=== PATIENT | female | born 1980 | race Caucasian/White ===

== ENCOUNTER 2019-05-30 08:15 | Emergency (ER) | payer BC ==
[2019-05-30] MEDS ORDERED: Famotidine 20 MG Tab PO ONE (08:50)
[2019-05-30] MEDS ORDERED: predniSONE 10 MG Tab PO ONE (08:52)
[2019-05-30] MEDS ORDERED: diphenhydrAMINE 50 MG Cap PO ONE (08:55)
--- NOTE | 2019-05-30 08:55 | EDM.PDOC ---
ED HPI GENERAL MEDICAL PROBLEM - General Chief Complaint: Allergic Reaction Stated Complaint: BODY AND FACE SWELLING/ALLERGIC REACTION Time Seen by Provider: 05/30/19 08:35 Source of Information: Reports: Patient History Limitations: Reports: No Limitations - History of Present Illness INITIAL COMMENTS - FREE TEXT/NARRATIVE: Patient is a 39-year-old female who presents with complaints of generalized rash as well as swelling in her eyes that started yesterday. She states that she was seen at the [facility] yesterday and did receive a "steroid shot" and has been taking Zyrtec. She states initially yesterday morning she did take some Benadryl but has not taken any since that time. She denies a known allergen. She states she will intermittently get a rash on her fourth and fifth fingers, however it is never been widespread like this. She been told in the past that it was stress-induced eczema. She states that she woke this morning the rash was worse than it was yesterday. She denies any swelling to her tongue, difficulty swallowing, or shortness of breath. - Related Data Allergies Allergy/AdvReac Type Severity Reaction Status Date / Time No Known Allergies Allergy Verified 05/30/19 08:25 Home Meds: Home Meds Levothyroxine [Synthroid] 50 mcg PO DAILY 11/04/13 [History] Cholecalciferol (Vitamin D3) [Vitamin D3] 5,000 unit PO DAILY 05/29/17 [History] Escitalopram [Lexapro] 10 mg PO DAILY 05/29/17 [History] Vitamin E 400 mg PO DAILY 05/29/17 [History] Acetaminophen/oxyCODONE [Percocet 325-5 MG] 2 tab PO Q4H PRN #30 tablet [Rx] Docusate Sodium [Colace] 100 mg PO BID cap 05/30/17 [Rx] predniSONE 40 mg PO DAILY #4 tab 05/30/19 [Rx] Past Medical History HEENT History: Reports: Impaired Vision Cardiovascular History: Reports: None Respiratory History: Reports: None Gastrointestinal History: Reports: None [employer] History: Reports: None Musculoskeletal History: Reports: Fibromyalgia Neurological History: Reports: Other (See Below) Other Neuro History: syncopal episode Psychiatric History: Reports: None Endocrine/Metabolic History: Reports: None Hematologic History: Reports: None Immunologic History: Reports: None Oncologic (Cancer) History: Reports: None Dermatologic History: Reports: None - Past Surgical History Head Surgeries/Procedures: Reports: None HEENT Surgical History: Reports: Oral Surgery Cardiovascular Surgical History: Reports: None Respiratory Surgical History: Reports: None GI Surgical History: Reports: None Female Surgical History: Reports: Section, Endometrial Ablation Other Female Surgeries/Procedures: hysteroscopy Endocrine Surgical History: Reports: None Neurological Surgical History: Reports: None Musculoskeletal Surgical History: Reports: None Oncologic Surgical History: Reports: None Dermatological Surgical History: Reports: None Social & Family History - Tobacco Use Smoking Status *Q: Never Smoker - Caffeine Use Caffeine Use: Reports: Coffee ED ROS ALLERGIC REACTION - Review of Systems Review Of Systems: See Below Constitutional: Reports: No Symptoms. Denies: Fever, Chills HEENT: Reports: No Symptoms Respiratory: Reports: No Symptoms Cardiovascular: Reports: No Symptoms Endocrine: Reports: No Symptoms GI/Abdominal: Reports: No Symptoms : Reports: No Symptoms Musculoskeletal: Reports: No Symptoms Skin: Reports: Rash (to upper extremities, torso, and face) Neurological: Reports: No Symptoms Psychiatric: Reports: No Symptoms Hematologic/Lymphatic: Reports: No Symptoms Immunologic: Reports: No Symptoms ED EXAM GENERAL NO PERIP PULSE - Physical Exam Exam: See Below Exam Limited By: No Limitations General Appearance: Alert, WD/WN, No Apparent Distress Throat/Mouth: Normal Inspection, Normal Lips, Normal Gums, Normal Oropharynx, Normal Voice, No Airway Compromise Head: Atraumatic, Normocephalic Respiratory/Chest: No Respiratory Distress, Lungs Clear, Normal Breath Sounds, No Accessory Muscle Use, Chest Non-Tender Cardiovascular: Normal Peripheral Pulses, Regular Rate, Rhythm, No Edema, No Murmur Neurological: Alert, Oriented, Normal Cognition Psychiatric: Normal Affect, Normal Mood Skin Exam: Warm, Dry, Rash (generalized maculopapular rash to bilateral arms, chest, back, and face. Edema present to bilateral eyes.) Course - Vital Signs Last Recorded V/S: Last Vital Signs Temp 98.3 F 05/30/19 08:23 Pulse 79 05/30/19 08:23 Resp 16 05/30/19 08:23 BP 134/91 H 05/30/19 08:23 Pulse Ox 100 05/30/19 08:23 - Orders/Labs/Meds Meds: Medications Discontinued Medications Generic Name Dose Route Start Last Admin Trade Name Brigida PRN Reason Stop Dose Admin Diphenhydramine HCl 50 mg 05/30/19 08:55 05/30/19 09:00 Benadryl PO 05/30/19 08:56 50 mg ONETIME ONE Administration Famotidine 20 mg 05/30/19 08:50 05/30/19 09:00 Pepcid PO 05/30/19 08:51 20 mg ONETIME ONE Administration Prednisone 40 mg 05/30/19 08:52 05/30/19 09:00 Prednisone PO 05/30/19 08:53 40 mg ONETIME ONE Administration - Re-Assessments/Exams Free Text/Narrative Re-Assessment/Exam: patient is a 39-year-old female who presents with complaints of generalized maculopapular rash throughout her upper extremities, torso, and face. She states that she was seen at the [facility] yesterday and given a shot which I did call and find out was Depo-Medrol 80 mg IM. She says she is also been taking Zyrtec as needed. Upon waking this morning she states that her face was more swollen and that the rash seems worse than it was yesterday. She denies any known allergens or having any difficulty swallowing, feeling of swelling in her mouth, or shortness of breath at any point during this occurrence. On exam she does have a generalized maculopapular rash over the dorsal aspect of her hands, bilateral arms, sparsely on the back and abdomen, as well as on her neck and face. She does have edematous eyelids. There is no redness within her mouth or signs of swelling to her oropharynx or uvula. I will discharge the patient with a prescription for prednisone and orders to use OTC Pepcid, Zyrtec, and Benadryl. discharge instructions as noted. Departure - Departure Time of Disposition: 09:09 Disposition: Home, Self-Care 01 Condition: Fair Clinical Impression: Allergic reaction Qualifiers: Encounter type: initial encounter Qualified Code(s): T78.40XA - Allergy, unspecified, initial encounter - Discharge Information *PRESCRIPTION DRUG MONITORING PROGRAM REVIEWED*: No *COPY OF PRESCRIPTION DRUG MONITORING REPORT IN PATIENT RUEL: No Prescriptions: predniSONE 40 mg PO DAILY #4 tab Instructions: Allergies, Adult, [id number] Referrals: Berenice Palencia PA-C [Primary Care Provider] - Forms: ED Department Discharge Additional Instructions: You were seen in the emergency Department today with complaints of a generalized widespread rash to your chest, back, face and bilateral upper arms, as well as swelling in your face and eyes. In the emergency department she received prednisone 40 mg, Pepcid 20 mg, and Benadryl 50 mg. A prescription has been sent to [facility] for Prednisone. Take this medication 1 tab daily for the next 4 days starting tomorrow. In addition we recommend you take Zyrtec 10 mg twice daily, Pepcid 10 mg twice daily and Benadryl 25-50 mg every 6 hours. Your symptoms should begin to improve over the next couple days. Sometimes it does take up to a week before it will resolve completely. If you should experience any difficulty swallowing, feeling of swelling in your tongue, or shortness of breath, he should return to the emergency department immediately.
== END 2019-05-30 09:20 | disposition home or self-care (01) ==
LOC: JD.ED 08:15
DX: T78.40XA Allergy, unspecified, initial encounter (principal); Z79.899 Other long term (current) drug therapy
CPT/HCPCS: 99283; A9270